=== PATIENT | male | born 1985 | race Native Hawaiian/Other Pacific Islander ===

== ENCOUNTER 2020-11-04 21:32 | Emergency (ER) | payer BC | END 2020-11-04 23:05 | disposition home or self-care (01) | LOC: ED 21:32 | PROC: 2W2KX4Z Dressing of Left Finger using Bandage (ICD-10-PCS; principal; 2020-11-04) | DX: T23.232A Burn of second degree of multiple left fingers (nail), not including thumb, initial encounter (principal); T31.0 Burns involving less than 10% of body surface; X15.8XXA Contact with other hot household appliances, initial encounter; Y92.89 Other specified places as the place of occurrence of the external cause | CPT/HCPCS: 96372; 99283; J2270; J2405 ==